=== PATIENT | female | born 1990 | race Caucasian/White ===

== ENCOUNTER 2018-12-23 09:46 | Observation (INO) | payer OTHER ==
[~2018-12-23] VITALS: Ht 154.9 cm; Wt 56.3 kg
[2018-12-23 09:47] VITALS: BP 121/88
--- NOTE | 2018-12-23 09:54 | NUR ---
PT TAKEN TO L&D DEPARTMENT VIA WHEEL CHAIR.
[2018-12-23] MEDS ORDERED: SUMAtriptan 25 MG TAB PO SCH (12:15)
== END 2018-12-23 13:18 | disposition home or self-care (01) ==
LOC: MED 09:46 → MLD 10:12
PROVIDERS: ADMIT Obstetrics & Gynecology; ATTEND Obstetrics & Gynecology
DX: O26.892 Other specified pregnancy related conditions, second trimester (principal); G43.909 Migraine, unspecified, not intractable, without status migrainosus; R10.2 Pelvic and perineal pain; Z3A.21 21 weeks gestation of pregnancy
CPT/HCPCS: 99281; G0378